=== PATIENT | male | born 1980 | race Caucasian/White ===

== ENCOUNTER 2025-04-07 12:27 | Outpatient (CLI) | payer OTHER | END 2025-04-07 12:28 | disposition home or self-care (01) | LOC: CSHRAD 12:27 | PROVIDERS: ATTEND Specialist | DX: R09.89 Other specified symptoms and signs involving the circulatory and respiratory systems (principal); R93.89 Abnormal findings on diagnostic imaging of other specified body structures | CPT/HCPCS: 71046 ==